=== PATIENT | male | born 1960 | race Caucasian/White ===

== ENCOUNTER 2018-04-11 09:10 | Emergency (ER) | payer BC ==
[~2018-04-11] VITALS: Ht 175.3 cm; Wt 106.6 kg
[2018-04-11] MEDS ORDERED: PRINIVIL5 MG PO (11:12)
[2018-04-11] MEDS ORDERED: NORCO 7.5-3251 EACH PO (11:12)
== END 2018-04-11 11:29 | disposition home or self-care (01) ==
LOC: ED 09:10
DX: S46.911A Strain of unspecified muscle, fascia and tendon at shoulder and upper arm level, right arm, initial encounter (principal); I10 Essential (primary) hypertension; X58.XXXA Exposure to other specified factors, initial encounter
CPT/HCPCS: 73030; 80053; 85025; 99284

== ENCOUNTER 2023-12-15 06:33 | Observation (INO) | payer OTHER ==
[~2023-12-15] VITALS: Ht 175.3 cm; Wt 108.3 kg
[~2023-12-15 06:33] MED LIST: NORCO 7.5-3251 EACH PO; PRINIVIL5 MG PO
[2023-12-15] MEDS ORDERED: IBLOOD GLUCOSE TEST STRIP 1 EA TEST XX ONE (06:45)
[2023-12-15 06:57] LABS: BASOPHILS 0.4 % (0-2); EOSINOPHILS 2.6 % (0-6); HEMATOCRIT 47.8 % (35.0-50.0); HEMOGLOBIN 16.3 g/dL (12.0-18.0); LYMPHOCYTES 19.7 % (24-44); MCH 29.5 (27-36); MCHC 34.1 g/dl (30-36); MCV 86.5 fl (81-99); MONOCYTES 6.8 % (0-12); NEUTROPHILS 70.5 % (39-80); PLATELET COUNT 288 K/uL (140-440); RBC 5.53 M/ul (4.3-5.7); RDW 13.6 (10.5-15.0)
[2023-12-15] MEDS ORDERED: LABETALOL HCL 20 MG/4 ML VIAL IV ONE (07:00)
[2023-12-15 07:04] LABS: INR 0.97 (0.80-1.30); PROTIME 12.2 Sec (11.2-14.2)
[2023-12-15 07:15] LABS: ALBUMIN 4.1 g/dL (3.4-5.0); ALBUMIN/GLOBULIN RATIO 1.11 (1.1-2.4); ANION GAP 13.3 (7-21); BILIRUBIN, TOTAL 0.7 ng/dL (0.2-1.0); BUN/CREATININE RATIO 10.57 (6.0-28.6); CALCIUM 9.2 mg/dL (8.5-10.1); CREATININE, SERUM 1.04 mg/dL (0.70-1.30); POTASSIUM 4.3 mmol/L (3.5-5.1); PROTEIN, TOTAL 7.8 g/dL (6.4-8.2)
[2023-12-15] MEDS ORDERED: ASPIRIN 325 MG TAB PO ONE (07:15)
[2023-12-15] MEDS ORDERED: ATORVASTATIN 40 MG TAB PO ONE (07:15)
[2023-12-15] MEDS ORDERED: CLOPIDOGREL BISULFATE 75 MG TAB PO ONE (07:15)
[2023-12-15 07:35] LABS: CHOLESTEROL/HDL RATIO 4.5
[2023-12-15 07:49] VITALS: BP 190/106
[2023-12-15 08:48] LABS: AMPHETAMINES, URINE NEGATIVE (NEGATIVE); BARBITURATES, URINE NEGATIVE (NEGATIVE); BENZODIAZEPINE, URINE NEGATIVE (NEGATIVE); BUPRENORPHINE, URINE NEGATIVE (NEGATIVE); CANNABINOID, URINE NEGATIVE (NEGATIVE); COCAINE, URINE NEGATIVE (NEGATIVE); ECSTASY, URINE NEGATIVE (NEGATIVE); FENTANYL, URINE NEGATIVE (NEGATIVE); METHADONE, URINE NEGATIVE (NEGATIVE); OPIATES, URINE NEGATIVE (NEGATIVE); OXYCODONE, URINE NEGATIVE (NEGATIVE); PHENCYCLIDINE, URINE NEGATIVE (NEGATIVE)
[2023-12-15] MEDS ORDERED: LISINOPRIL40 MG PO (08:56)
[2023-12-15 10:18] VITALS: BP 192/117
[2023-12-15 14:05] VITALS: BP 195/87
[2023-12-15] MEDS ORDERED: MENTHOL/CETYLPYRD CL 1 LOZ LOZENGE PO PRN (14:30)
[2023-12-15] MEDS ORDERED: phenoL 177 ML SPRAY MT PRN (15:00)
[2023-12-15 16:08] VITALS: BP 195/87
[2023-12-15 18:08] VITALS: BP 187/96
[2023-12-15 20:57] VITALS: BP 183/99
[2023-12-16 00:28] VITALS: BP 183/99
[2023-12-16 01:56] VITALS: BP 212/105
[2023-12-16 05:11] VITALS: BP 203/96
[2023-12-16 05:22] LABS: BASOPHILS 0.4 % (0-2); EOSINOPHILS 3.5 % (0-6); HEMATOCRIT 45.7 % (35.0-50.0); HEMOGLOBIN 15.3 g/dL (12.0-18.0); LYMPHOCYTES 24.7 % (24-44); MCH 29.1 (27-36); MCHC 33.5 g/dl (30-36); NEUTROPHILS 64.4 % (39-80); PLATELET COUNT 268 K/uL (140-440); RBC 5.25 M/ul (4.3-5.7); RDW 13.5 (10.5-15.0)
[2023-12-16 05:43] LABS: ALBUMIN 3.7 g/dL (3.4-5.0); ALBUMIN/GLOBULIN RATIO 1.12 (1.1-2.4); ANION GAP 13.1 (7-21); BILIRUBIN, TOTAL 0.7 ng/dL (0.2-1.0); BUN/CREATININE RATIO 11.82 (6.0-28.6); CALCIUM 9.2 mg/dL (8.5-10.1); CREATININE, SERUM 0.93 mg/dL (0.70-1.30); POTASSIUM 4.1 mmol/L (3.5-5.1)
[2023-12-16] MEDS ORDERED: lisinopriL 20 MG TAB PO ONE (07:45)
[2023-12-16] MEDS ORDERED: ASPIRIN 81 MG CHEW PO SCH (08:00)
[2023-12-16 08:48] VITALS: BP 197/108
[2023-12-16 08:50] VITALS: BP 197/108
[2023-12-16] MEDS ORDERED: ENOXAPARIN SODIUM 40 MG/0.4 ML SYR SUB-Q SCH (09:00)
[2023-12-16] MEDS ORDERED: CLOPIDOGREL BISULFATE 75 MG TAB PO SCH (09:00)
[2023-12-16] MEDS ORDERED: ATORVASTATIN 40 MG TAB PO SCH (09:00)
[2023-12-16 11:03] VITALS: BP 173/97
[2023-12-16] MEDS ORDERED: CLOPIDOGREL75 MG PO (11:15)
[2023-12-16] MEDS ORDERED: LIPITOR40 MG PO (11:16)
[2023-12-16] MEDS ORDERED: ASPIRIN81 MG PO (11:16)
[2023-12-16] MEDS ORDERED: PHARMACY RENAL DOSE ADJUSTMENT 1 DOSE MISC PO SCH (12:00)
--- NOTE | 2023-12-16 20:12 | EKG ---
[facility] [address] [place], [place] [address] Signed Normal sinus rhythm Normal ECG No previous ECGs available Confirmed by Charles Bauer MD ([id number]) on 12/16/2023 8:12:48 PM Electronically Signed By: CHARLES BAUER MD 12/16/232011 PATIENT NAME: GEO ACKERMAN Electrocardiogram DATE OF : 64 PHYSICIAN: CHARLES BAUER MD REPORT #: [id number] REPORT IS CONFIDENTIAL AND NOT TO BE RELEASED WITHOUT AUTHORIZATION
== END 2023-12-16 11:49 | disposition home or self-care (01) ==
LOC: ED 06:33 → MS 06:35
PROVIDERS: Internal Medicine; ADMIT Student in an Organized Health Care Education/Training Program; ATTEND Student in an Organized Health Care Education/Training Program
DX: G45.9 Transient cerebral ischemic attack, unspecified (principal); I10 Essential (primary) hypertension; E78.5 Hyperlipidemia, unspecified; F17.220 Nicotine dependence, chewing tobacco, uncomplicated; Z79.899 Other long term (current) drug therapy
CPT/HCPCS: 36415; 70450; 70496; 70498; 70551; 71045; 80053; 80061; 80307; 83036; 83735; 84484; 85025; 85610; 85730; 93005; 93010; 93306; 97110; 97161; 97165; A9270; G0378; J1650; Q3014; Q9967